=== PATIENT | female | born 1980 | race Two or more races ===

== ENCOUNTER 2020-10-03 19:19 | Emergency (ER) | payer MEDICAID, OTHER ==
[~2020-10-03] VITALS: Ht 165.1 cm; Wt 86.2 kg
[2020-10-03] MEDS ORDERED: IBUPROFEN 600 MG TABLET ONE (19:41)
[2020-10-03] MEDS ORDERED: HYDROCODONE/APAP 5/325MG TABLET ONE (19:41)
--- NOTE | 2020-10-03 19:49 | NUR ---
urine sent to the lab
[2020-10-03] MEDS ORDERED: IBUPROFEN 600 MG TABLET PO ONE (20:00)
[2020-10-03] MEDS ORDERED: HYDROCODONE/APAP 5/325MG TABLET PO ONE (20:00)
--- NOTE | 2020-10-03 20:26 | NUR ---
followed up with lab, currently runnig urine test.
[2020-10-03] MEDS ORDERED: HYDR-4209 PO (21:32)
--- NOTE | 2020-10-03 21:59 | NUR ---
Patient discharged to home in stable condition. Written and verbal after care instructions given. Patient verbalizes understanding of instruction.
[2020-10-03 22:02] VITALS: BP 125/76
== END 2020-10-03 22:02 | disposition home or self-care (01) ==
LOC: ER 19:20
DX: S30.0XXA Contusion of lower back and pelvis, initial encounter (principal); E11.9 Type 2 diabetes mellitus without complications; Z98.890 Other specified postprocedural states; W22.8XXA Striking against or struck by other objects, initial encounter; Y93.89 Activity, other specified; Y92.89 Other specified places as the place of occurrence of the external cause; Y99.8 Other external cause status
CPT/HCPCS: 72220-TC; 84703-TC